=== PATIENT | female | born 1985 | race Caucasian/White ===

== ENCOUNTER 2018-06-20 17:21 | Emergency (ER) | payer OTHER ==
[2018-06-20] MEDS ORDERED: ONDANSETRON 4 MG TAB.RAPDIS PO ONE (17:53)
[2018-06-20] MEDS ORDERED: DICYCLOMINE HCL 20 MG TABLET PO ONE (17:53)
[2018-06-20] MEDS ORDERED: FAMOTIDINE 20 MG TABLET PO ONE (17:54)
--- NOTE | 2018-06-20 17:54 | ER Document Report ---
ED Medical Screen (RME) - General Chief Complaint: Abdominal Pain Stated Complaint: STOMACH PAIN Time Seen by Provider: 06/20/18 17:51 Mode of Arrival: Ambulatory Information source: [facility] Records Notes: 32-year-old female presents with complaint of abdominal cramping that started 1 day prior to arrival. Patient has had associated nausea without vomiting. Her last bowel movement was this morning. Patient had a negative test at home. Does admit to drinking last night prior to abdominal pain I have greeted and performed a rapid initial assessment of this patient. A comprehensive ED assessment and evaluation of the patient, analysis of test results and completion of medical decision making process we will be contacted by additional ED providers. PHYSICAL EXAMINATION: Vital signs reviewed-within normal limits GENERAL: Well-appearing, well-nourished and in no acute distress. LUNGS: No respiratory distress Musculoskeletal: Normal range of motion NEUROLOGICAL: Normal speech, normal gait. PSYCH: Normal mood, normal affect. SKIN: Warm, Dry, normal turgor, no rashes or lesions noted. TRAVEL OUTSIDE OF THE [place] IN LAST 30 DAYS: No - HPI Onset: Yesterday Onset/Duration: Gradual, Persistent Quality of pain: Cramping Severity: Moderate Associated Symptoms: Dysuria, Nausea. denies: Diarrhea, Vomiting Exacerbated by: Movement Relieved by: Remaining still Similar symptoms previously: No Recently seen / treated by doctor: No - Related Data Smoking: Non-smoker Frequency of alcohol use: Occasional Drug Abuse: None Allergies/Adverse Reactions: No Known Allergies Allergy (Verified 05/29/16 23:58) Past Medical History - Social History Chew tobacco use (# tins/day): No Frequency of alcohol use: Occasional Drug Abuse: None Renal/ Medical History: Denies: Hx Peritoneal Dialysis Physical Exam - Vital signs Vitals: Temp Pulse Resp BP Pulse Ox 98.4 F 81 16 127/72 H 100 06/20/18 17:35 06/20/18 17:35 06/20/18 17:35 06/20/18 17:35 06/20/18 17:35 Course - Vital Signs Vital signs: Temp Pulse Resp BP Pulse Ox 98.4 F 81 16 127/72 H 100 06/20/18 17:35 06/20/18 17:35 06/20/18 17:35 06/20/18 17:35 06/20/18 17:35
[2018-06-20 18:15] LABS: ABSOLUTE EOSINOPHILS # (AUTO) 0.1 10^3/uL (0.0-0.6); ABSOLUTE LYMPHOCYTES (AUTO) 2.1 10^3/uL (0.5-4.7); ABSOLUTE MONOCYTES (AUTO) 0.4 10^3/uL (0.1-1.4); ABSOLUTE NEUT (AUTO) 3.8 10^3/uL (1.7-8.2); BASOPHILS % (AUTO) 0.6 % (0-2); EOSINOPHILS % (AUTO) 0.9 % (0-6); HEMATOCRIT 40.3 % (36.0-47.0); HEMOGLOBIN 13.9 g/dL (12.0-15.5); LYMPHOCYTES % (AUTO) 32.9 % (13-45); MEAN CORPUSCULAR HEMOGLOBIN 33.1 pg (27.0-33.4); MEAN CORPUSCULAR HGB CONC 34.5 g/dL (32.0-36.0); MEAN CORPUSCULAR VOLUME 96 fl (80-97); MONOCYTES % (AUTO) 6.3 % (3-13); PLATELET COUNT 247 10^3/uL (150-450); RED BLOOD COUNT 4.21 10^6/uL (3.72-5.28); RED CELL DISTRIBUTION WIDTH 12.5 % (11.5-14.0); SEGMENTED NEUTROPHILS % (AUTO) 59.3 % (42-78); TOTAL CELLS COUNTED % (AUTO) 100 %; WHITE BLOOD COUNT 6.5 10^3/uL (4.0-10.5)
[2018-06-20 18:25] LABS: APPEARANCE,URINE CLEAR; BILIRUBIN,URINE NEGATIVE (NEGATIVE); COLOR,URINE YELLOW; GLUCOSE, URINE NEGATIVE (NEGATIVE); KETONES,URINE NEGATIVE (NEGATIVE); LEUKOCYTE ESTERASE,URINE NEGATIVE (NEGATIVE); NITRITE,URINE NEGATIVE (NEGATIVE); PROTEIN,URINE NEGATIVE (NEGATIVE); URINE SPECIFIC GRAVITY 1.019; UROBILINOGEN,URINE NEGATIVE mg/dL (<2.0)
[2018-06-20 18:38] LABS: ALANINE AMINOTRANSFERASE 8 U/L (9-52); ALBUMIN 4.1 g/dL (3.5-5.0); ALKALINE PHOSPHATASE 67 U/L (38-126); ANION GAP 8 (5-19); ASPARTATE AMINO TRANSFERASE 17 U/L (14-36); BILIRUBIN,DIRECT 0.1 mg/dL (0.0-0.4); BILIRUBIN,TOTAL 0.4 mg/dL (0.2-1.3); BLOOD UREA NITROGEN 13 mg/dL (7-20); CALCIUM 8.7 mg/dL (8.4-10.2); CARBON DIOXIDE 27 mmol/L (22-30); CHLORIDE 103 mmol/L (98-107); GLUCOSE 93 mg/dL (75-110); LIPASE 60.5 U/L (23-300); POTASSIUM 3.6 mmol/L (3.6-5.0); SODIUM 137.8 mmol/L (137-145); TOTAL PROTEIN 6.6 g/dL (6.3-8.2)
[2018-06-20] MEDS ORDERED: NORMAL SALINE 1000 ML 1,000 ML IV ONE (20:05)
[2018-06-20] MEDS ORDERED: KETOROLAC TROMETHAMINE INJ/PF 30 MG/1 ML SDV IV ONE (20:05)
--- NOTE | 2018-06-20 20:11 | ER Document Report ---
ED GI/ - General Chief Complaint: Abdominal Pain Stated Complaint: STOMACH PAIN Time Seen by Provider: 06/20/18 17:51 Mode of Arrival: Ambulatory Notes: Patient is a 32-year-old female that comes to the emergency department for chief complaint of lower abdominal pain. Symptoms started last night and were sharp, symptoms are not as bad today but have been persistent, she is also felt intermittent nausea. Pain is on both sides. She denies flank pain, upper abdominal pain, vomiting, fever, dysuria, vaginal discharge or bleeding. She denies any abdominal surgeries, she takes no daily medications, LMP within the past month. She is sexually active with her . TRAVEL OUTSIDE OF THE [place] IN LAST 30 DAYS: No - Related Data Allergies/Adverse Reactions: No Known Allergies Allergy (Verified 05/29/16 23:58) Past Medical History - General Information source: Patient - Social History Smoking Status: Never Smoker Chew tobacco use (# tins/day): No Frequency of alcohol use: Occasional Drug Abuse: None Lives with: Family Family History: Reviewed & Not Pertinent Patient has suicidal ideation: No Patient has homicidal ideation: No - Medical History Medical History: Negative Renal/ Medical History: Denies: Hx Peritoneal Dialysis Surgical Hx: Negative - Immunizations Immunizations up to date: Yes Hx Diphtheria, Pertussis, Tetanus Vaccination: Yes Review of Systems - Review of Systems Constitutional: No symptoms reported EENT: No symptoms reported Cardiovascular: No symptoms reported Respiratory: No symptoms reported Gastrointestinal: See HPI Genitourinary: No symptoms reported Female Genitourinary: No symptoms reported Musculoskeletal: No symptoms reported Skin: No symptoms reported Hematologic/Lymphatic: No symptoms reported Neurological/Psychological: No symptoms reported Physical Exam - Vital signs Vitals: Temp Pulse Resp BP Pulse Ox 98.4 F 81 16 127/72 H 100 06/20/18 17:35 06/20/18 17:35 06/20/18 17:35 06/20/18 17:35 06/20/18 17:35 - Notes Notes: GENERAL: Alert, interacts well. No acute distress. HEAD: Normocephalic, atraumatic. EYES: Pupils equal, round, and reactive to light. Extraocular movements intact. ENT: Oral mucosa moist, tongue midline. Oropharynx unremarkable. Airway patent. Nares patent, no nasal septal hematoma, TM's intact. NECK: Full range of motion. Supple. Trachea midline. LUNGS: Clear to auscultation bilaterally, no wheezes, rales, or rhonchi. No respiratory distress. HEART: Regular rate and rhythm. No murmur ABDOMEN: Tender in both lower quadrants and in the pelvic area bilaterally and equally, no rigidity or guarding, no severe tenderness, of her abdomen is completely benign. No distention noted, normal bowel sounds. GENITOURINARY:, No cervical motion tenderness noted, whitish and yellowish vaginal discharge no lesions, no concerning abnormalities noted otherwise. Exam performed with Es PCT at bedside. EXTREMITIES: Moves all 4 extremities spontaneously. No edema, normal radial and dorsalis pedis pulses bilaterally. No cyanosis. BACK: no cervical, thoracic, lumbar midline tenderness. No saddle anesthesia, normal distal neurovascular exam. NEUROLOGICAL: Alert and oriented x3. Normal speech. [cranial nerves II through XII grossly intact]. PSYCH: Normal affect, normal mood. SKIN: Warm, dry, normal turgor. No rashes or lesions noted. Course - Re-evaluation Re-evalutation: Patient stating she is no different on my evaluation after medications in triage , however after IV fluids and Toradol patient was improved. On my evaluation patient has bilateral lower abdominal pain but this is general and does not have any notable guarding or severe tenderness. Patient is well- appearing and talkative. CBC, chemistry, lipase, urinalysis, test are all unremarkable. Vital signs unremarkable. Discussed with patient, decision was made to perform pelvic exam, this does show vaginal discharge, 3+ bacteria, 2+ white blood cells, negative Trichomonas , positive yeast. Gonorrhea and Chlamydia still pending. Patient will be treated for pelvic infection, advised to take stool softener for this patient's symptoms, I have low suspicion of acute abdomen based on her evaluation and workup. Discussed follow-up, treatment expectations, and return precautions in detail with patient. Patient states understanding and agreement with plan. - Vital Signs Vital signs: Temp Pulse Resp BP Pulse Ox 98.6 F 59 L 16 117/68 99 06/20/18 21:52 06/20/18 21:52 06/20/18 21:52 06/20/18 21:52 06/20/18 21:52 - Laboratory Result Diagrams: 06/20/18 18:04 06/20/18 18:04 Laboratory results interpreted by me: 06/20/18 18:04 ALT 8 L Discharge - Discharge Clinical Impression: Lower abdominal pain Condition: Stable Disposition: HOME, SELF-CARE Additional Instructions: Your evaluation is consistent with a pelvic infection, you have been treated for this, you have also been treated for a yeast infection, complete treatment by taking Flagyl at home as prescribed. Do not drink while taking the Flagyl. I also recommend a [id number] stool softener such as MiraLAX for the next 1-2 days or at least increase your fiber and drink lots of fluids. Return if you worsen including fever, vomiting, severe pain, or any other concerning or worsening symptoms. Prescriptions: Metronidazole [Flagyl 500 mg Tablet] 500 mg PO BID #14 tablet
[2018-06-20 20:58] LABS: T.VAGINALIS (WET MOUNT) NO TRICHOMONAS SEEN
[2018-06-20 20:59] LABS: BACTERIA (WET MOUNT) 3+ BACTERIA SEEN; RBCS (WET MOUNT) NO RBCS SEEN; WBCS (WET MOUNT) 2+ WBCS SEEN; YEAST (WET MOUNT) BUDDING YEAST SEEN
[2018-06-20] MEDS ORDERED: FLUCONAZOLE 100 MG TABLET PO ONE (21:11)
[2018-06-20] MEDS ORDERED: AZITHROMYCIN 250 MG TABLET PO ONE (21:11)
[2018-06-20] MEDS ORDERED: CEFTRIAXONE INJ 250 MG VIAL IV ONE (21:11)
[2018-06-20] MEDS ORDERED: ONDANSETRON HCL INJ/PF 4 MG/2 ML SDV IV ONE (21:12)
[2018-06-20 21:54] VITALS: BP 117/68
[2018-06-20 22:21] LABS: CHLAM PCR NOT DETECTED (NOT DETECT); GON PCR NOT DETECTED (NOT DETECT)
== END 2018-06-20 21:54 | disposition home or self-care (01) ==
LOC: ER 17:21
DX: R10.30 Lower abdominal pain, unspecified (principal); R11.0 Nausea
CPT/HCPCS: 99284; 96361; 96375; 96365; 36415; 87210; 83690; 85025; 81025; 80053; 81001; 87491; 87591; J3490; S0119; J1885; J2405; J7030; J0696

== ENCOUNTER 2019-01-05 12:08 | Emergency (ER) | payer OTHER ==
[2019-01-05 12:46] VITALS: BP 119/77
--- NOTE | 2019-01-05 13:32 | ER Document Report ---
ED Medical Screen (RME) - General Chief Complaint: Vaginal Bleeding Stated Complaint: VAGINAL BLEEDING Time Seen by Provider: 01/05/19 12:54 TRAVEL OUTSIDE OF THE [place] IN LAST 30 DAYS: No - HPI Notes: 01/05/19 13:14 Patient is a 33 yr old female that had a positive test x 2 weeks ago presents to the emergency department for chief complaint of scant vaginal bleeding x 2 nights ago. LMP 4 or 11/03. denies any abd pain, pelvic pain. No history of bleeding disorders. Denies any nausea vomiting diarrhea, fevers chills, chest pain, shortness of breath. Is Rh negative, did have Rhogam with other pregnancies. Has not needed copious amounts of sanitary napkins, reports very light bleeding. ROS: Other than noted above, the 12 point review of systems was reviewed with the patient and were negative, all pertinent findings are included in the HPI. PHYSICAL EXAMINATION: Vital signs reviewed. GENERAL: Well-appearing, well-nourished and in no acute distress. HEAD: Atraumatic, normocephalic. NECK: Normal range of motion CV: Heart regular rate and rhythm LUNGS: No respiratory distress ABD: generalized abd pain Musculoskeletal: Normal range of motion NEUROLOGICAL: Normal speech PSYCH: Normal mood, normal affect. MDM: Patient seen and examined for rapid initial assessment. Vital signs reviewed. A comprehensive ED assessment and evaluation of the patient, analysis of test results and completion of the medical decision making process will be conducted by additional ED providers. *Note is created using voice recognition software and may contain spelling, syntax or grammatical errors. - Related Data Allergies/Adverse Reactions: No Known Allergies Allergy (Verified 01/05/19 13:25) Past Medical History Renal/ Medical History: Denies: Hx Peritoneal Dialysis - Immunizations Immunizations up to date: Yes Hx Diphtheria, Pertussis, Tetanus Vaccination: Yes Physical Exam - Vital signs Vitals: Temp Pulse Resp BP 98.4 F 71 16 119/77 01/05/19 12:21 01/05/19 12:21 01/05/19 12:01/05/19 12:21 Course - Vital Signs Vital signs: Temp Pulse Resp BP Pulse Ox 98.4 F 71 16 119/77 01/05/19 12:21 01/05/19 12:21 01/05/19 12:21 01/05/19 12:21
[2019-01-05 14:08] LABS: INTERNATIONAL RATION (INR) 0.89
[2019-01-05 14:09] LABS: PARTIAL THROMBOPLASTIN TIME 20.8 SEC (23.5-35.8)
--- NOTE | 2019-01-05 14:18 | ER Document Report ---
ED General - General Chief Complaint: Vaginal Bleeding Stated Complaint: VAGINAL BLEEDING Time Seen by Provider: 01/05/19 12:54 Primary Care Provider: [facility] [Provider Group] - Follow up as needed TRAVEL OUTSIDE OF THE [place] IN LAST 30 DAYS: No - HPI Notes: Patient is a 33-year-old female G5, P2 with 2 previous abortions who presents approximately 6 weeks complaining of spotting over the last 2 days and being Rh-. Patient states that she is otherwise feeling well and is eating and drinking without difficulty. She is urinating normally and having normal bowel movements. No other vaginal odor or discharge. Denies drug allergies. No other concerns or complaints. Denies any headache, fever, URI, sore throat, chest pain, palpitations, syncope, cough, shortness of breath, wheeze, dyspnea, abdominal pain, nausea/vomiting/diarrhea, urinary retention, dysuria, hematuria, back pain, or rash. - Related Data Allergies/Adverse Reactions: No Known Allergies Allergy (Verified 01/05/19 13:25) Past Medical History - General Last Menstrual Period: 11/03/2018 - Social History Smoking Status: Never Smoker Chew tobacco use (# tins/day): No Frequency of alcohol use: None Family History: Reviewed & Not Pertinent Patient has suicidal ideation: No Patient has homicidal ideation: No Renal/ Medical History: Denies: Hx Peritoneal Dialysis - Immunizations Immunizations up to date: Yes Hx Diphtheria, Pertussis, Tetanus Vaccination: Yes Review of Systems - Review of Systems -: Yes All other systems reviewed and negative Physical Exam - Vital signs Vitals: Temp Pulse Resp BP 98.4 F 71 16 119/77 01/05/19 12:21 01/05/19 12:21 01/05/19 12:21 01/05/19 12:21 - Notes Notes: PHYSICAL EXAMINATION: GENERAL: Well-appearing, well-nourished and in no acute distress. LUNGS: Breath sounds clear to auscultation bilaterally and equal. No wheezes rales or rhonchi. HEART: Regular rate and rhythm without murmurs, rubs, gallops. ABDOMEN: Soft, nontender, nondistended abdomen. No guarding, no rebound. Normal bowel sounds present. No CVA tenderness bilaterally. Musculoskeletal: FROM to passive/active. Strength 5+/5. Extremities: No cyanosis, clubbing, or edema b/l. Peripheral pulses 2+. Capillary refill less than 3 seconds. NEUROLOGICAL: ormal speech, normal gait. PSYCH: Normal mood, normal affect. SKIN: Warm, Dry, normal turgor, no rashes or lesions noted. Course - Re-evaluation Re-evalutation: 01/05/19 16:55 Patient is an afebrile, well-hydrated, 33-year-old female who presents to the ED with bleeding in early and intrauterine . Vitals are acceptable without any significant tachycardia, tachypnea, or hypoxia. PE is otherwise unremarkable. CBC, CMP unremarkable for acute pathology. HCG at 3524. TVUS shows evidence of the gest sac w/o pole measuring approx 5wk 6 days. No cardiac activity noted. + subchorionic hemorrhage noted. UA unremarkable. Patient is nontoxic-appearing is tolerating p.o. without any difficulties. Pt is Rh- so rhogam given. No other labs or imaging warranted at this time based on H&P. Low suspicion/risk for acute appendicitis, bowel obstr uction, acute cholecystitis, acute cholangitis, perforated diverticulitis, incarcerated hernia, pancreatitis, perforated ulcer, peritonitis, sepsis, pelvic inflammatory disease, ectopic , tubo-ovarian abscess, ovarian torsion, or other systemic emergent condition at this time. Patient is aware that her condition can change from initial presentation and she needs to monitor symptoms closely and seek medical attention if any acute changes. Recheck HCG in 2-3 days, may need repeat US next week as well. Conservative measures otherwise for symptoms. Recheck with your PCM/OBGYN in 3-5 days. Return to the ED with any worsening/concerning symptoms otherwise as reviewed in discharge. Patient is in agreement. - Vital Signs Vital signs: Temp Pulse Resp BP Pulse Ox 98.4 F 71 16 119/77 01/05/19 12:21 01/05/19 12:21 01/05/19 12:21 01/05/19 12:21 - Laboratory Result Diagrams: 01/05/19 14:17 01/05/19 13:40 Laboratory results interpreted by me: 01/05/19 01/05/19 01/05/19 13:40 13:40 13:40 MCH APTT 20.8 L Sodium 136.3 L Carbon Dioxide 21 L Glucose 124 H Beta HCG, Quant 3524.40 H Urine Ketones 01/05/19 01/05/19 13:40 14:17 MCH 33.9 H APTT Sodium Carbon Dioxide Glucose Beta HCG, Quant Urine Ketones TRACE H Discharge - Discharge Clinical Impression: Bleeding in early Condition: Stable Disposition: HOME, SELF-CARE Instructions: Bleeding During Early ([facility]) Additional Instructions: Maintain fluid intake Proper hygienic technique Keep the skin clean Tylenol/ibuprofen as needed You will need to recheck your beta hCG in 2 to 3 days. You will need an ultrasound again next week with your [employer]MENT [employer]NAGER/family provider. F/u with your PCM/OBGYN in 3-5 days for a recheck Return to the ED with any development of SAMUELS/fever, trouble with vision, eye redness, worsening pain, urethral discharge, urinary retention, blood in the urine, flank pain, abdominal pain, n/v, Chest Pain, shortness of breath, joint pains, trouble breathing, or any other worsening/concerning symptoms as needed otherwise. Forms: Follow-Up Laboratory Testing Referrals: [facility] [Provider Group] - Follow up as needed
[2019-01-05 14:20] LABS: ALANINE AMINOTRANSFERASE 22 U/L (9-52); ALBUMIN 4.3 g/dL (3.5-5.0); ALKALINE PHOSPHATASE 58 U/L (38-126); ANION GAP 10 (5-19); ASPARTATE AMINO TRANSFERASE 20 U/L (14-36); BILIRUBIN,DIRECT 0.2 mg/dL (0.0-0.4); BILIRUBIN,TOTAL 0.7 mg/dL (0.2-1.3); BLOOD UREA NITROGEN 11 mg/dL (7-20); CARBON DIOXIDE 21 mmol/L (22-30); CHLORIDE 105 mmol/L (98-107); GLUCOSE 124 mg/dL (75-110); POTASSIUM 3.7 mmol/L (3.6-5.0); SODIUM 136.3 mmol/L (137-145); TOTAL PROTEIN 6.9 g/dL (6.3-8.2)
[2019-01-05 14:37] LABS: APPEARANCE,URINE CLEAR; BILIRUBIN,URINE NEGATIVE (NEGATIVE); COLOR,URINE STRAW; GLUCOSE, URINE NEGATIVE (NEGATIVE); KETONES,URINE TRACE mg/dL (NEGATIVE); LEUKOCYTE ESTERASE,URINE NEGATIVE (NEGATIVE); NITRITE,URINE NEGATIVE (NEGATIVE); PROTEIN,URINE NEGATIVE (NEGATIVE); URINE SPECIFIC GRAVITY 1.005; UROBILINOGEN,URINE NEGATIVE mg/dL (<2.0)
[2019-01-05 14:41] LABS: ABSOLUTE LYMPHOCYTES (AUTO) 1.7 10^3/uL (0.5-4.7); ABSOLUTE MONOCYTES (AUTO) 0.3 10^3/uL (0.1-1.4); BASOPHILS % (AUTO) 0.5 % (0-2); EOSINOPHILS % (AUTO) 0.7 % (0-6); HEMATOCRIT 40.2 % (36.0-47.0); HEMOGLOBIN 14.3 g/dL (12.0-15.5); LYMPHOCYTES % (AUTO) 27.9 % (13-45); MEAN CORPUSCULAR HEMOGLOBIN 33.9 pg (27.0-33.4); MEAN CORPUSCULAR HGB CONC 35.5 g/dL (32.0-36.0); MEAN CORPUSCULAR VOLUME 96 fl (80-97); MONOCYTES % (AUTO) 4.5 % (3-13); PLATELET COUNT 228 10^3/uL (150-450); RED BLOOD COUNT 4.21 10^6/uL (3.72-5.28); RED CELL DISTRIBUTION WIDTH 12.4 % (11.5-14.0); SEGMENTED NEUTROPHILS % (AUTO) 66.4 % (42-78); TOTAL CELLS COUNTED % (AUTO) 100 %; WHITE BLOOD COUNT 6.1 10^3/uL (4.0-10.5)
--- NOTE | 2019-01-05 16:38 | RADIOLOGY REPORT (SQ) ---
EXAM DESCRIPTION: U/S OB TRANSVAG W/DOPPLER COMPLETED DATE/TIME: 01/05/2019 4:14 pm REASON FOR STUDY: vaginal bleeding COMPARISON: None. TECHNIQUE: Endovaginal static and realtime grayscale images acquired of the pelvis. Additional selec mane spectral and color Doppler images recorded. All images stored on PACs. CLINICAL AGE: Last menses 11/03/2018 estimated age 9 weeks 0 days [id number] LIMITATIONS: None. FINDINGS: UTERUS: Uterus measures 11 x 7 x 5 cm in size. No fibroids. GESTATIONAL SAC: Normal shape. Mean sac diameter generates an estimated gestational age of 5 weeks 6 days. Moderate size surrounding subchorionic hemorrhage about 2.6 by 1 cm in size. YOLK SAC: Identified POLE: Identified, very small, difficult to measure. Cardiac flicker not definitely identified. RIGHT ADNEXA: Right ovary not visualized due to limited acoustic window. No adnexal free fluid. No adnexal masses. LEFT ADNEXA: Left ovary 3.5 x 2.2 x 1.8 cm in size with a 2.3 cm cyst, likely a corpus luteum. No adnexal free fluid. No adnexal masses. FREE FLUID: None. OTHER: No other significant finding. IMPRESSION: Intrauterine gestational sac containing a yolk sac with pole. Mean sac diameter g enerates an estimated gestational age of 5 weeks 6 days. No embryo cardiac activity was identified. Close clinical follow-up with serial quantitative HCG and follow-up ultrasound recommended to assess for embryo viability. Moderate size subchorionic hemorrhage. Findings discussed with Franca Art in the emergency room 01/05/2019, 1625 hours Trimester of : First - 0 to 13 weeks. TECHNICAL DOCUMENTATION: JOB ID: [id number] [employer]- All Rights Reserved Reading location - IP/workstation name: [email or web address]
== END 2019-01-05 17:10 | disposition home or self-care (01) ==
LOC: ER 12:08
DX: O46.91 Antepartum hemorrhage, unspecified, first trimester (principal); Z3A.01 Less than 8 weeks gestation of pregnancy
CPT/HCPCS: 99284; 86900; 86901; 36415; 86850; 84702; 85025; 85610; 85730; 80053; 81001; 76817; 93976; J2790

== ENCOUNTER → 2019-01-07 | Outpatient (CLI) | payer OTHER | LOC: OD 09:40 | PROVIDERS: ATTEND Physician Assistant Medical | DX: O20.0 Threatened abortion (principal) | CPT/HCPCS: 36415; 84702 ==